=== PATIENT | male | born 1975 ===

== ENCOUNTER 2021-10-07 03:38 | Emergency (ER) | payer OTHER ==
[2021-10-07] MEDS ORDERED: CLINDAMYCIN 900MG/D5W 900 MG/50 ML IVPB IV ONE (04:40)
[2021-10-07] MEDS ORDERED: NA CHLORIDE 0.9% 1,000 ML ONE (04:41)
[2021-10-07 04:44] LABS: Absolute Lymphocytes (CBC) 3.6 K/uL (0.7-4.9); Hematocrit 40.1 % (39.6-49.0); Lymphocytes % 29.1 % (15.3-44.8); MPV 6.6 fL (7.6-11.3); RBC Red Blood Cell Count 4.52 M/uL (4.33-5.43)
[2021-10-07 04:52] LABS: Protime INR 0.99
[2021-10-07 05:10] LABS: ALT/SGPT 41 U/L (12-78); AST/SGOT 18 U/L (15-37); Albumin 3.9 g/dL (3.4-5.0); Alkaline Phosphatase 71 U/L (45-117); BUN Blood Urea Nitrogen 12 mg/dL (7-18); Bicarbonate 25 mmol/L (21-32); Bilirubin Total 0.4 mg/dL (0.2-1.0); Glucose Level 113 mg/dL (74-106); Potassium 3.9 mmol/L (3.5-5.1); Protein, Total 7.8 g/dL (6.4-8.2); Sodium Level 139 mmol/L (136-145)
[2021-10-07 05:11] LABS: Bilirubin Direct < 0.1 mg/dL (0-0.2)
--- NOTE | 2021-10-07 09:15 | ER ---
Nurse's Notes [facility] Name: Delfino Ac Age: 46 yrs Sex: Male : 1975 Arrival Date: 10/07/2021 Time: 03:42 Bed 19 Private MD: Diagnosis: Dental Abscess Presentation: 10/07 03:46 Chief complaint: Patient states: tooth ache to top right of mouth. swelling to right tw5 side of face starting around 0900 yesterday morning. has dentist appt on Saturday but cannot handle the pain. Coronavirus screen: Client denies travel out of the [place] in the last 14 days. At this time, the client does not indicate any symptoms associated with coronavirus-19. Ebola Screen: No symptoms or risks identified at this time. Initial Sepsis Screen: Does the patient meet any 2 criteria? No. Patient's initial sepsis screen is negative. Does the patient have a suspected source of infection? No. Patient's initial sepsis screen is negative. Risk Assessment: Do you want to hurt yourself or someone else? Patient reports no desire to harm self or others. Onset of symptoms was September 07, 2021. 03:46 Method Of Arrival: Ambulatory tw5 03:46 Acuity: KUSHAL 3 tw5 Triage Assessment: 03:50 General: Appears in no apparent distress. uncomfortable, Behavior is calm, cooperative. tw5 Pain: Complains of pain in right cheek, mouth and right jaw Pain currently is 10 out of 10 on a pain scale. EENT: Reports pain in right cheek, mouth and right jaw. Neuro: No deficits noted. Level of Consciousness is awake, alert, obeys commands, Oriented to person, place. Cardiovascular: No deficits noted. Denies chest pain, shortness of breath. Respiratory: No deficits noted. Breath sounds are clear bilaterally. GI: No deficits noted. No signs and/or symptoms were reported involving the gastrointestinal system. Abdomen is round non-distended. : No deficits noted. No signs and/or symptoms were reported regarding the genitourinary system. Derm: Skin is intact, is healthy with good turgor, Skin is dry, swelling to right side of face. Musculoskeletal: No deficits noted. No signs and/or symptoms reported regarding the musculoskeletal system. Circulation, motion, and sensation intact. Capillary refill < 3 seconds, Range of motion: intact in all extremities. Historical: - Allergies: 03:50 No Known Allergies; tw5 - Home Meds: 03:50 None [Active]; tw5 - PMHx: 03:50 None; tw5 - PSHx: 03:50 right hand tendon repair; tw5 - Immunization history:: Adult Immunizations up to date, Client reports having NOT received the Covid vaccine. Last tetanus immunization: unknown. - Social history:: Smoking status: Patient denies any tobacco usage or history of. Patient uses alcohol, only on a social basis. Screenin:53 Abuse screen: Denies threats or abuse. Denies injuries from another. Nutritional tw5 screening: No deficits noted. Tuberculosis screening: No symptoms or risk factors identified. Fall Risk None identified. Assessment: 04:09 Reassessment: No changes from previously documented assessment. dejuan 05:23 Reassessment: No changes from previously documented assessment. Pt ambulated to the dejuan restroom with a steady gait. Vital Signs: 03:46 BP 146 / 92; Pulse 88; Resp 17 S; Temp 97.8(TE); Pulse Ox 98% on R/A; Weight 102.51 kg tw5 (R); Height 5 ft. 7 in. (170.18 cm) (R); Pain 10/10; 04:09 BP 121 / 74; Pulse 83; Resp 18; Temp 97.2; Pulse Ox 100% on R/A; Pain 10/10; dejuan 05:23 BP 124 / 78; Pulse 78; Resp 18; Temp 97.5; Pulse Ox 100% on R/A; Pain 8/10; dejuan 09:15 BP 133 / 87; Pulse 83; Resp 18; Pulse Ox 100% on R/A; santiago 03:46 Body Mass Index 35.40 (102.51 kg, 170.18 cm) tw5 ED Course: 03:42 Patient arrived in ED. ja2 03:50 Triage completed. tw5 03:50 Arm band placed on right wrist. tw5 04:08 Marilee Willson, HOMERO is Primary Nurse. dejuan 04:10 Bed in low position. Call light in reach. Adult w/ patient. dejuan 04:10 No provider procedures requiring assistance completed. dejuan 04:11 John Muhammad MD is Attending Physician. 7 04:28 Inserted saline lock: 20 gauge in right antecubital area, using aseptic technique. dejuan 04:35 LFT's Sent. dejuan 04:36 Protime (+inr) Sent. dejuan 04:36 Ptt, Activated Sent. dejuan 04:36 CBC with Diff Sent. dejuan 04:36 Basic Metabolic Panel Sent. dejuan 05:49 CT Maxillofacial W/cont In Process Unspecified. EDMS 06:56 Weston Magdaleno PA is PHCP. jmm 09:14 Aden Delgado DDS is Referral Physician. jmm 09:24 IV discontinued, intact, Pressure dressing applied. santiago Administered Medications: 04:42 Drug: Clindamycin 900 mg Route: IVPB; Infused Over: 30 mins; Site: right antecubital; dejuan 05:45 Follow up: Response: No adverse reaction; IV Intake: 50ml dejuan 04:43 Drug: NS 0.9% 1000 ml Route: IV; Rate: 1000 ml; Site: right antecubital; dejuan 05:45 Follow up: IV Status: Completed infusion dejuan Intake: 05:45 IV: 50ml; Total: 50ml. dejuan Outcome: 04:10 Condition: stable dejuan 09:14 Discharge ordered by . jmm 09:23 Discharged to home with family. santiago 09:23 Condition: good 09:23 Discharge instructions given to patient, Prescriptions given X 1. 09:24 Patient left the ED. santiago Signatures: Dispatcher [employer] EDMS Weston Magdaleno PA PA jmm Holmes, Maurice, MD MD mh7 [address] Tiffany tw5 Marilee Willson RN RN bo Au-Stager, Heather, RN RN ha Corrections: (The following items were deleted from the chart) 03:54 03:46 Chief complaint: Patient states: tooth ache to top right of mouth. swelling to tw5 right side of face starting around 0900 yesterday morning. tw5
--- NOTE | 2021-10-07 09:15 | EDPHYS ---
Physician Documentation [facility] Name: Delfino Ac Age: 46 yrs Sex: Male : 1975 Arrival Date: 10/07/2021 Time: 03:42 Bed 19 Private MD: ED Physician John Muhammad HPI: 10/07 04:35 This 46 yrs old Male presents to ER via Ambulatory with complaints of Toothache, Facial mh7 Swelling. 04:35 The patient presents with pain, swelling. The problem is located in the Right upper mh7 teeth, right upper jaw. Onset: The symptoms/episode began/occurred 2 day(s) ago. Duration: The symptoms are continuous, and are steadily getting worse. Modifying factors: The symptoms are alleviated by nothing, the symptoms are aggravated by nothing. Associated signs and symptoms: Pertinent negatives: anorexia, chills, dysphagia, fever, inability to eat, nausea, redness in area, vomiting. Severity of symptoms: At their worst the symptoms were moderate, yesterday, in the emergency department the symptoms are unchanged. Historical: - Allergies: 03:50 No Known Allergies; tw5 - Home Meds: 03:50 None [Active]; tw5 - PMHx: 03:50 None; tw5 - PSHx: 03:50 right hand tendon repair; tw5 - Immunization history:: Adult Immunizations up to date, Client reports having NOT received the Covid vaccine. Last tetanus immunization: unknown. - Social history:: Smoking status: Patient denies any tobacco usage or history of. Patient uses alcohol, only on a social basis. ROS: 04:35 Constitutional: Negative for fever, chills, and weight loss, Eyes: Negative for injury, mh7 pain, redness, and discharge, ENT: Negative for injury, pain, and discharge, Neck: Negative for injury, pain, and swelling, Cardiovascular: Negative for chest pain, palpitations, and edema, Respiratory: Negative for shortness of breath, cough, wheezing, and pleuritic chest pain, Abdomen/GI: Negative for abdominal pain, nausea, vomiting, diarrhea, and constipation, Back: Negative for injury and pain, : Negative for injury, bleeding, discharge, and swelling, MS/Extremity: Negative for injury and deformity, Skin: Negative for injury, rash, and discoloration, Neuro: Negative for headache, weakness, numbness, tingling, and seizure, Psych: Negative for depression, anxiety, suicide ideation, homicidal ideation, and hallucinations, Allergy/Immunology: Negative for hives, rash, and allergies, Endocrine: Negative for neck swelling, polydipsia, polyuria, polyphagia, and marked weight changes, Hematologic/Lymphatic: Negative for swollen nodes, abnormal bleeding, and unusual bruising. Exam: 04:35 Constitutional: This is a well developed, well nourished patient who is awake, alert, mh7 and in no acute distress. Eyes: Pupils equal round and reactive to light, extra-ocular motions intact. Lids and lashes normal. Conjunctiva and sclera are non-icteric and not injected. Cornea within normal limits. Periorbital areas with no swelling, redness, or edema. Neck: Trachea midline, no thyromegaly or masses palpated, and no cervical lymphadenopathy. Supple, full range of motion without nuchal rigidity, or vertebral point tenderness. No Meningismus. Chest/axilla: Normal chest wall appearance and motion. Nontender with no deformity. No lesions are appreciated. Cardiovascular: Regular rate and rhythm with a normal S1 and S2. No gallops, murmurs, or rubs. Normal PMI, no JVD. No pulse deficits. Respiratory: Lungs have equal breath sounds bilaterally, clear to auscultation and percussion. No rales, rhonchi or wheezes noted. No increased work of breathing, no retractions or nasal flaring. Abdomen/GI: Soft, non-tender, with normal bowel sounds. No distension or tympany. No guarding or rebound. No evidence of tenderness throughout. Back: No spinal tenderness. No costovertebral tenderness. Full range of motion. Skin: Warm, dry with normal turgor. Normal color with no rashes, no lesions, and no evidence of cellulitis. MS/ Extremity: Pulses equal, no cyanosis. Neurovascular intact. Full, normal range of motion. Neuro: Awake and alert, GCS 15, oriented to person, place, time, and situation. Cranial nerves II-XII grossly intact. Motor strength 5/5 in all extremities. Sensory grossly intact. Cerebellar exam normal. Normal gait. Psych: Awake, alert, with orientation to person, place and time. Behavior, mood, and affect are within normal limits. 04:35 ENT: Dental exam: dental caries, that is moderate, diffusely, specifically in the mh7 upper right third molar (#1), upper right second molar (#2), upper right first molar (#3), upper right second bicuspid (#4), upper right first bicuspid (#5), upper right cuspid (#6), upper right lateral incisor (#7), upper right central incisor (#8), upper left central incisor (#9), upper left cuspid (#11), upper left second bicuspid (#13), upper left first molar (#14), upper left second molar (#15), upper left third molar (#16), lower right first molar (#30), lower right second molar (#31) and lower right third molar (#32). 04:35 Head/face: Noted is swelling, that is mild, of the right cheek. 7 Vital Signs: 03:46 BP 146 / 92; Pulse 88; Resp 17 S; Temp 97.8(TE); Pulse Ox 98% on R/A; Weight 102.51 kg tw5 (R); Height 5 ft. 7 in. (170.18 cm) (R); Pain 10/10; 04:09 BP 121 / 74; Pulse 83; Resp 18; Temp 97.2; Pulse Ox 100% on R/A; Pain 10/10; dejuan 05:23 BP 124 / 78; Pulse 78; Resp 18; Temp 97.5; Pulse Ox 100% on R/A; Pain 8/10; dejuan 09:15 BP 133 / 87; Pulse 83; Resp 18; Pulse Ox 100% on R/A; santiago 03:46 Body Mass Index 35.40 (102.51 kg, 170.18 cm) tw5 MDM: 07:10 Patient medically screened. [facility] 09:13 Data reviewed: vital signs, nurses notes. Counseling: I had a detailed discussion with pamela the patient and/or guardian regarding: the historical points, exam findings, and any diagnostic results supporting the discharge/admit diagnosis, lab results, radiology results, the need for outpatient follow up, to return to the emergency department if symptoms worsen or persist or if there are any questions or concerns that arise at home. ED course: Patient will follow up with oral surgery on Saturday for reevaluation. patient is otherwise given strict return precautions. patient understood and agrees with the plan of care. . 10/07 04:28 Order name: CBC with Diff; Complete Time: 05:14 10/07 04:28 Order name: Basic Metabolic Panel; Complete Time: 05:14 10/07 04:28 Order name: LFT's; Complete Time: 05:14 10/07 04:28 Order name: Protime (+inr); Complete Time: 05:14 10/07 04:28 Order name: Ptt, Activated; Complete Time: 05:14 10/07 04:34 Order name: CT Maxillofacial W/cont; Complete Time: 01:27 10/07 04:28 Order name: Saline Lock; Complete Time: 04:35 Administered Medications: 04:42 Drug: Clindamycin 900 mg Route: IVPB; Infused Over: 30 mins; Site: right antecubital; dejuan 05:45 Follow up: Response: No adverse reaction; IV Intake: 50ml dejuan 04:43 Drug: NS 0.9% 1000 ml Route: IV; Rate: 1000 ml; Site: right antecubital; dejuan 05:45 Follow up: IV Status: Completed infusion dejuan Disposition: 10/08 01:27 Co-signature as Attending Physician, John Muhammad MD. [facility] Disposition Summary: 10/07/21 09:14 Discharge Ordered Location: Home [facility] Condition: Stable [facility] Diagnosis - Dental Abscess [facility] Followup: [facility] - With: Aden Delgado DDS - When: 2 - 3 days - Reason: Recheck today's complaints, Continuance of care, Re-evaluation by your physician Discharge Instructions: - Discharge Summary Sheet [facility] - Dental Abscess [facility] Forms: - Medication Reconciliation Form [facility] - Thank You Letter [facility] - Antibiotic Education [facility] - Prescription Opioid Use [facility] Prescriptions: - Clindamycin HCl 300 mg Oral Capsule - take 1 capsule by ORAL route every 6 hours for 10 days; 40 capsule; Refills: 0, [facility] Product Selection Permitted Signatures: Dispatcher [employer] EDWeston Beth PA PA jmm Holmes, Maurice, MD MD [facility] Arti Tellez 5 Marilee Willson, RN RN dejuan
[2021-10-07 09:46] VITALS: O2SAT 100
[2021-10-07 09:48] VITALS: TEMP 97.5
[2021-10-07 09:49] VITALS: BP 133/87
--- NOTE | 2021-10-07 21:59 | RAD REPORT ---
EXAM DESCRIPTION: CT - Maxillofacial W/Cont - 10/07/2021 6:44 am CLINICAL HISTORY: Facial pain;Swelling COMPARISON: None. TECHNIQUE: CT MAXILLOFACIAL WITH IV CONTRAST on 10/07/2021 4:34 AM HAND FUR CLEANER This exam was performed according to our departmental dose-optimization program, which includes autom ated exposure control, adjustment of the mA and/or kV according to patient size and/or use of iterati ve reconstruction technique. FINDINGS: There is no acute fracture. Right maxillary sinus is opacified. There is a small fluid col lection adjacent to the anterolateral right mandible measuring 13 x 6 mm. Orbits and globes are unrem arkable. Mastoid air cells are clear. Temporomandibular joints are intact. There is right infraorbita l soft tissue swelling. IMPRESSION: Small right perimandibular abscess with extensive right infraorbital soft tissue swellin g. Electronically signed by: Adam Heaton MD 10/07/2021 6:22 AM HAND FUR CLE[employer]ER Due to temporary technical issues with the PACS/Fluency reporting system, reports are being signed by the in house radiologists without review as a courtesy to insure prompt reporting. The interpreting radiologist is fully responsible for the content of the report.
== END 2021-10-07 09:24 | disposition home or self-care (01) ==
LOC: ER 03:38
DX: K04.7 Periapical abscess without sinus (principal)
CPT/HCPCS: 96361; 85025; 80048; 36415; 85610; 80076; 85730; 70487; 96374; 99284; Q9967; J7030